=== PATIENT | female | born 1935 | race Caucasian/White ===

== ENCOUNTER 2019-08-25 18:04 | Observation (INO) | payer MEDICARE, BC ==
[~2019-08-25] VITALS: Ht 170.2 cm; Wt 99.3 kg
[2019-08-25] MEDS ORDERED: ketorolac trometh. 30mg/ml inj. IV ONE (20:00)
[2019-08-25] MEDS ORDERED: normal saline 1000ml 1,000 ML IV ONE ×2 (20:00→21:50)
--- NOTE | 2019-08-25 20:03 | NUR ---
Pt transported via w/c to CT scan
[2019-08-25 20:05] LABS: CLARITY,URINE CLEAR (Clear); COLOR,URINE YELLOW (Yellow); GLUCOSE, URINE NEGATIVE (Neg); KETONES,URINE NEGATIVE (Neg); LEUKOCYTE ESTERASE ,URINE SMALL (Neg); NITRITES, URINE NEGATIVE (Neg); OCCULT BLOOD,URINE NEGATIVE (Neg); PROTEIN,URINE NEGATIVE (Neg); UROBILINOGEN,URINE 0.2 E.U/dL (0.2-1.0)
[2019-08-25 20:14] LABS: UA COLLECTION TYPE CLN CATCH MIDSTREAM
[2019-08-25 20:16] LABS: BACTERIA,URINE NONE SEEN /HPF (Neg); RBC,URINE 0-2 /HPF (0-2); WBC,URINE 0-4 /HPF (0-4)
[2019-08-25 20:17] LABS: HYALINE CASTS 0-3 /LPF (NEGATIVE); MUCUS STRANDS FEW /LPF (Neg); SQUAMOUS EPITHELIAL CELL,UR FEW /LPF (FEW)
[2019-08-25 20:23] LABS: URINE AMPHETAMINE SCREEN NEGATIVE (Neg); URINE BARBITUATE SCREEN NEGATIVE (Neg); URINE BENZODIAZEPINES SCREEN NEGATIVE (Neg); URINE CANNABINOID SCREEN NEGATIVE (Neg); URINE COCAINE SCREEN NEGATIVE (Neg); URINE METHADONE SCREEN NEGATIVE (Neg); URINE OPIATE SCREEN POSITIVE (Neg); URINE PHENCYCLIDINE SCREEN NEGATIVE (Neg)
[2019-08-25 21:00] LABS: HEMOGLOBIN 12.3 g/dl (12.0-16.0)
[2019-08-25 21:05] LABS: ALANINE AMINOTRANSFERASE 15 U/L (12-78); ALBUMIN 3.7 G/DL (3.4-5.0); ALBUMIN/GLOBULIN RATIO 1.4 (1.1-1.5); ALKALINE PHOSPHATASE 86 IU/L (46-116); ANION GAP 7 (8-16); ASPARTATE AMINO TRANSFERASE 27 U/L (10-37); BILIRUBIN,TOTAL 0.7 MG/DL (0.1-1.0); BLOOD UREA NITROGEN 19 MG/DL (7-18); BUN/CREATININE RATIO 18.6 (6.6-38.0); CALCIUM 8.8 MG/DL (8.5-10.1); CHLORIDE 108 MMOL/L (99-107); CREATININE 1.02 MG/DL (0.40-0.90); GLUCOSE 101 MG/DL (70-104); POTASSIUM 3.9 MMOL/L (3.5-5.1); SODIUM 143 MMOL/L (135-145); TOTAL CARBON DIOXIDE 28.3 MMOL/L (24-32); TOTAL PROTEIN 6.3 G/DL (6.4-8.2); eGFR 52 ML/MIN
[2019-08-25 21:06] LABS: BASOPHILS # (AUTO) 0.3 X10'3 (0-0.2); BASOPHILS % (AUTO) 0.4 % (0-1); EOSINOPHILS # (AUTO) 0.1 X10'3 (0-0.9); EOSINOPHILS % (AUTO) 0.1 % (0-6); HEMATOCRIT 38.3 % (35.0-45.0); LYMPHOCYTES % (AUTO) 89.4 % (21-51); MEAN CORPUSCULAR HEMOGLOBIN 31.2 PG (27.0-31.0); MEAN CORPUSCULAR HGB CONC 32.2 g/dL (33.0-36.5); MEAN CORPUSCULAR VOLUME 96.9 FL (78-98); MEAN PLATELET VOLUME 9.1 FL (7.4-10.4); MONOCYTES # (AUTO) 1.7 X10'3 (0-0.9); MONOCYTES % (AUTO) 1.9 % (2-12); NEUTROPHILS # (AUTO) 7.1 X10'3 (1.8-7.7); NEUTROPHILS % (AUTO) 8.2 % (42-75); PLATELET COUNT 138 X10'3 (140-440); RED BLOOD COUNT 3.95 X10'6 (4.20-5.60); RED CELL DISTRIBUTION WIDTH 14.3 % (11.5-14.5)
[2019-08-25 21:08] LABS: CREATINE KINASE 162 U/L (26-192); TROPONIN I < 0.04 NG/ML (0.0-0.05)
[2019-08-25 21:13] LABS: ETHANOL < 0.010 GM/DL (0.0-0.010)
[2019-08-25 21:16] LABS: WHITE BLOOD COUNT 86.1 X10'3 (4.5-11.0)
[2019-08-25] MEDS ORDERED: magnesium 4gm in 100ml NS 100 ML IV PRN (21:50)
[2019-08-25] MEDS ORDERED: magnesium hydroxide 30ml (MOM) UD suspension PO PRN (21:50)
[2019-08-25] MEDS ORDERED: potassium CL 10mEq/100ml bag 100 ML IV PRN ×2 (21:50)
[2019-08-25] MEDS ORDERED: potassium Cl 20 mEq SR tablet PO PRN ×2 (21:50)
[2019-08-25] MEDS ORDERED: magnesium 2GM in 50ml NS 50 ML IV PRN (21:50)
[2019-08-25] MEDS ORDERED: acetaminophen 325mg tablet PO PRN (21:50)
[2019-08-25] MEDS ORDERED: ondansetron/PF 4mg/2ml inj IV PRN (21:50)
[2019-08-25] MEDS ORDERED: magnesium Cl slow-release 64mg tablet PO PRN (21:50)
[2019-08-25] MEDS ORDERED: mag hydrox/Alum hydrox/simeth 30ml oral suspension PO PRN (21:50)
[2019-08-25] MEDS ORDERED: morphine 2 MG/ML inj. syringe IV PRN ×2 (21:50)
[2019-08-25 22:18] LABS: TOTAL CELLS COUNTED 100
[2019-08-25 22:19] LABS: PLATELET ESTIMATE DECREASED; SMUDGE CELLS 4+
[2019-08-25] MEDS ORDERED: [UNRECOGNIZED DRUG - CODE] (22:33)
[2019-08-25] MEDS ORDERED: ALPR0.255 (22:33)
[2019-08-25] MEDS ORDERED: ACET-812 PO (22:33)
--- NOTE | 2019-08-25 22:36 | NUR ---
Dr. Forrest is at the bedside with the patient at this time.
--- NOTE | 2019-08-25 22:39 | NUR ---
Patient in room ED 9. I have received report from GENET Smith and had the opportunity to ask questions and assume patient care.
[2019-08-25 23:00] VITALS: BP 140/92
[2019-08-26] MEDS ORDERED: non-formulary drug (Acetaminophen (Tylenol Extra Strength) 2 TABLET) PO SCH (02:00)
[2019-08-26] MEDS ORDERED: acetaminophen 325mg tablet PO PRN (02:35)
[2019-08-26] MEDS: HYDROcodone/acetaminophen 5mg/325mg tablet PO PRN ×2 (05:34→10:45)
[2019-08-26 05:42] LABS: BASOPHILS # (AUTO) 0.1 X10'3 (0-0.2); BASOPHILS % (AUTO) 0.1 % (0-1); EOSINOPHILS # (AUTO) 0.1 X10'3 (0-0.9); EOSINOPHILS % (AUTO) 0.2 % (0-6); MEAN PLATELET VOLUME 9.2 FL (7.4-10.4); NEUTROPHILS % (AUTO) 6.2 % (42-75); RED CELL DISTRIBUTION WIDTH 14.4 % (11.5-14.5)
[2019-08-26 05:47] LABS: ALBUMIN 2.8 G/DL (3.4-5.0); ANION GAP 6 (8-16); BLOOD UREA NITROGEN 22 MG/DL (7-18); BUN/CREATININE RATIO 28.9 (6.6-38.0); CALCIUM 8.1 MG/DL (8.5-10.1); CHLORIDE 113 MMOL/L (99-107); CREATININE 0.76 MG/DL (0.40-0.90); GLUCOSE 99 MG/DL (70-104); HEMATOCRIT 32.8 % (35.0-45.0); HEMOGLOBIN 10.6 g/dl (12.0-16.0); LYMPHOCYTES # (AUTO) 65.5 X10'3 (1.1-4.8); LYMPHOCYTES % (AUTO) 91.3 % (21-51); MAGNESIUM 1.9 MG/DL (1.5-2.4); MEAN CORPUSCULAR HEMOGLOBIN 31.6 PG (27.0-31.0); MEAN CORPUSCULAR HGB CONC 32.4 g/dL (33.0-36.5); MEAN CORPUSCULAR VOLUME 97.3 FL (78-98); MONOCYTES # (AUTO) 1.6 X10'3 (0-0.9); MONOCYTES % (AUTO) 2.2 % (2-12); NEUTROPHILS # (AUTO) 4.5 X10'3 (1.8-7.7); PLATELET COUNT 109 X10'3 (140-440); POTASSIUM 3.7 MMOL/L (3.5-5.1); RED BLOOD COUNT 3.37 X10'6 (4.20-5.60); SODIUM 146 MMOL/L (135-145); TOTAL CARBON DIOXIDE 26.8 MMOL/L (24-32); eGFR 72 ML/MIN
[2019-08-26 05:54] LABS: WHITE BLOOD COUNT 71.7 X10'3 (4.5-11.0)
[2019-08-26 06:00] VITALS: BP 104/60
--- NOTE | 2019-08-26 06:23 | NUR ---
Problems reprioritized. Patient report given, questions answered & plan of care reviewed with GENET Millard.
[2019-08-26 07:21] LABS: ANISOCYTOSIS 1+; PLATELET ESTIMATE DECREASED; TOTAL CELLS COUNTED 100
[2019-08-26] MEDS ORDERED: K and/or MAG REPLACEMENT MC SCH (08:00)
[2019-08-26] MEDS ORDERED: enoxaparin 30mg/0.3ml syringe SQ SCH (08:00)
[2019-08-26 10:00] VITALS: BP 128/55
[2019-08-26] MEDS ORDERED: HYDR-4383 PO (13:56)
--- NOTE | 2019-08-26 14:45 | NUR ---
Patient discharged at this time, walker brought from [facility] by Joyce Calles paper prescription given to patient daughter to rock picker. Patient taken out in wheel chair to vehicle with all of her belongings.
== END 2019-08-26 14:50 | disposition home or self-care (01) ==
LOC: ER 18:04 → ED HOLD 22:06 → EDBEDREQ 22:19 → ORTHO 4S 22:55
PROVIDERS: ADMIT Hospitalist; ATTEND Hospitalist
DX: R55 Syncope and collapse (principal); S22.42XA Multiple fractures of ribs, left side, initial encounter for closed fracture; J98.11 Atelectasis; E04.2 Nontoxic multinodular goiter; C95.90 Leukemia, unspecified not having achieved remission; E87.0 Hyperosmolality and hypernatremia; Z79.899 Other long term (current) drug therapy; Z88.0 Allergy status to penicillin; Z88.8 Allergy status to other drugs, medicaments and biological substances; W18.30XA Fall on same level, unspecified, initial encounter; Y93.89 Activity, other specified; Y92.009 Unspecified place in unspecified non-institutional (private) residence as the place of occurrence of the external cause
CPT/HCPCS: 36415; 70450; 71250; 72125; 73020; 73560; 76536; 80048; 80053; 80305; 80320; 81001; 82550; 83735; 84439; 84484; 85025; 85610; 87081; 93005; 93306; 96361; 96372; 96374; 96375; 97116; 97162; 97530; 99284; G0378; J1650; J1885; J2270; J7030; 99285

== ENCOUNTER 2022-04-06 22:57 | Emergency (ER) | payer MEDICARE, BC ==
[~2022-04-06] VITALS: Ht 167.6 cm; Wt 63.2 kg
[~2022-04-06 22:57] MED LIST: ACET-812 PO; HYDR-4383 PO; [UNRECOGNIZED DRUG - CODE]
[2022-04-07 02:15] LABS: EOSINOPHILS # (AUTO) 0.1 X10'3 (0-0.9); EOSINOPHILS % (AUTO) 0.1 % (0-6); PLATELET COUNT 107 X10'3 (140-440)
[2022-04-07 02:20] LABS: BASOPHILS # (AUTO) 0.2 X10'3 (0-0.2); BASOPHILS % (AUTO) 0.2 % (0-1); HEMATOCRIT 34.7 % (35.0-45.0); HEMOGLOBIN 10.7 g/dl (12.0-16.0); LYMPHOCYTES # (AUTO) 120.9 X10'3 (1.1-4.8); LYMPHOCYTES % (AUTO) 95.1 % (21-51); MEAN CORPUSCULAR HEMOGLOBIN 30.5 PG (27.0-31.0); MEAN CORPUSCULAR VOLUME 98.6 FL (78-98); MEAN PLATELET VOLUME 8.2 FL (7.4-10.4); MONOCYTES % (AUTO) 0.8 % (2-12); NEUTROPHILS # (AUTO) 4.9 X10'3 (1.8-7.7); NEUTROPHILS % (AUTO) 3.8 % (42-75); RED BLOOD COUNT 3.51 X10'6 (4.20-5.60); RED CELL DISTRIBUTION WIDTH 14.8 % (11.5-14.5)
[2022-04-07 02:24] LABS: WHITE BLOOD COUNT 127.1 X10'3 (4.5-11.0)
[2022-04-07 02:30] LABS: CLARITY,URINE CLEAR (Clear); COLOR,URINE YELLOW (Yellow); GLUCOSE, URINE NEGATIVE (Neg); KETONES,URINE NEGATIVE (Neg); LEUKOCYTE ESTERASE ,URINE NEGATIVE (Neg); OCCULT BLOOD,URINE TRACE-INTACT (Neg); PH,URINE 6.5 (4.8-8.0); PROTEIN,URINE NEGATIVE (Neg); UROBILINOGEN,URINE 0.2 E.U/dL (0.2-1.0)
[2022-04-07 02:31] LABS: ALANINE AMINOTRANSFERASE 17 U/L (12-78); ALBUMIN 3.6 G/DL (3.4-5.0); ALBUMIN/GLOBULIN RATIO 1.3 (1.1-1.5); ALKALINE PHOSPHATASE 87 IU/L (46-116); ANION GAP 8 (8-16); ASPARTATE AMINO TRANSFERASE 25 U/L (10-37); BILIRUBIN,TOTAL 0.7 MG/DL (0.1-1.0); BLOOD UREA NITROGEN 17 MG/DL (7-18); BUN/CREATININE RATIO 22.7 (6.6-38.0); CALCIUM 8.9 MG/DL (8.5-10.1); CHLORIDE 100 MMOL/L (99-107); CREATININE 0.75 MG/DL (0.40-0.90); GLUCOSE 93 MG/DL (70-104); LIPASE 84 U/L (73-393); POTASSIUM 3.6 MMOL/L (3.5-5.1); SODIUM 135 MMOL/L (135-145); TOTAL CARBON DIOXIDE 27.5 MMOL/L (24-32); TOTAL PROTEIN 6.3 G/DL (6.4-8.2); eGFR 73 ML/MIN
[2022-04-07 02:40] LABS: UA COLLECTION TYPE OTHER
[2022-04-07 02:41] LABS: BACTERIA,URINE NONE SEEN /HPF (Neg); NITRITES, URINE NEGATIVE (Neg); RBC,URINE 0-2 /HPF (0-2); SQUAMOUS EPITHELIAL CELL,UR FEW /LPF (FEW); WBC,URINE 0-4 /HPF (0-4)
[2022-04-07] MEDS ORDERED: normal saline 1000ML IV soln IVB ONE (03:00)
[2022-04-07 03:05] LABS: ANISOCYTOSIS 1+; PLATELET ESTIMATE DECREASED; SMUDGE CELLS 4+; TOTAL CELLS COUNTED 100
[2022-04-07] MEDS ORDERED: ondansetron/PF 4mg/2ml inj IV ONE (04:15)
[2022-04-07] MEDS ORDERED: morphine 2 MG/ML inj. syringe IV ONE (04:15)
[2022-04-07 06:20] VITALS: BP 125/51
== END 2022-04-07 06:21 | disposition home or self-care (01) ==
LOC: ER 22:58
DX: K59.00 Constipation, unspecified (principal); R10.84 Generalized abdominal pain; Z60.2 Problems related to living alone; Z88.1 Allergy status to other antibiotic agents; Z88.8 Allergy status to other drugs, medicaments and biological substances; Z79.899 Other long term (current) drug therapy
CPT/HCPCS: 36415; 74176; 80053; 81001; 83690; 84145; 85007; 85025; 96374; 96375; 99285; J2270; J2405; J7030